=== PATIENT | male | born 1990 | race Caucasian/White ===

== ENCOUNTER → 2022-08-29 | Outpatient (REF) | payer BC, OTHER | LOC: M SMT 17:08 | PROVIDERS: ATTEND Urology | DX: Z30.2 Encounter for sterilization (principal) ==

== ENCOUNTER 2022-10-03 02:28 | Emergency (ER) | payer BC, OTHER ==
[~2022-10-03] VITALS: Ht 188 cm; Wt 112.6 kg
[2022-10-03] MEDS ORDERED: AMPICILLIN SOD/SULBACTAM SOD 3 GM in D5W MINI-BAG PLUS 100 ML IV ONE (03:15)
[2022-10-03 03:17] LABS: BASO # 0.1 10^3/uL (0.0-0.2); BASO % 0.6 % (0.0-1.0); EOS # 0.2 10^3/uL (0.0-0.5); EOS % 2.6 % (0.0-3.0); HEMATOCRIT 42.5 % (42.0-52.0); HEMOGLOBIN 14.2 g/dl (13.5-17.5); LYMPH # 0.7 10^3/uL (1.5-5.0); LYMPH % 8.6 % (24.0-44.0); MEAN CORPUSCULAR HEMOGLOBIN 29.3 pg (27.0-33.0); MEAN CORPUSCULAR HGB CONC 33.4 g/dl (32.0-36.5); MEAN CORPUSCULAR VOLUME 87.6 fl (80.0-96.0); MONO # 0.7 10^3/uL (0.0-0.8); MONO % 8.5 % (2.0-8.0); NEUTROPHILS # 6.3 10^3/uL (1.5-8.5); NEUTROPHILS % 79.2 % (36.0-66.0); PLATELET COUNT, AUTOMATED 163 10^3/uL (150-450); RED BLOOD COUNT 4.85 10^6/uL (4.30-6.10)
[2022-10-03] MEDS ORDERED: ACETAMINOPHEN TAB 650MG DOSE (2X325MG) PO ONE ×2 (03:25→09:15)
[2022-10-03 03:28] LABS: INR 1.01; PROTHROMBIN TIME 13.5 SECONDS (12.5-14.5)
[2022-10-03 03:29] LABS: LIPASE 31 U/L (12-53)
[2022-10-03 03:31] LABS: AMYLASE 42 U/L (30-118); CK-MB VALUE MASS < 1.0 NG/ML (<3.6)
[2022-10-03 03:32] LABS: ALBUMIN 3.9 G/DL (3.2-5.2); ALKALINE PHOSPHATASE 65 U/L (46-116); ALT/SGPT 23 U/L (7.0-40); AST/SGOT 19 U/L (<34); BILIRUBIN,DIRECT 0.2 MG/DL (<0.4); BILIRUBIN,TOTAL 0.5 MG/DL (0.3-1.2); BLOOD UREA NITROGEN 14 MG/DL (9-23); CARBON DIOXIDE LEVEL 24 MMOL/L (20-31); CHLORIDE LEVEL 105 MMOL/L (98-107); CPK CREATINE PHOSPHOKINASE 386 U/L (46-171); CREATININE FOR GFR 0.93 MG/DL (0.70-1.30); GLOMERULAR FILTRATION RATE > 60.0 (>60); GLUCOSE, FASTING 118 MG/DL (60-100); MB/CK RELATIVE INDEX 0.25 (< OR =4); POTASSIUM SERUM 4.1 MMOL/L (3.5-5.1); SODIUM LEVEL 138 MMOL/L (136-145); TOTAL PROTEIN 6.4 G/DL (5.7-8.2)
[2022-10-03 03:47] LABS: RSV AMPLIFICATION NEGATIVE (NEGATIVE)
[2022-10-03 04:06] LABS: CK-MB VALUE MASS < 1.0 NG/ML (<3.6)
[2022-10-03 04:08] LABS: CPK CREATINE PHOSPHOKINASE 369 U/L (46-171); MB/CK RELATIVE INDEX 0.27 (< OR =4)
[2022-10-03] MEDS ORDERED: ISOVUE-370 76% 100ML VIAL As Ordered ONE (04:22)
[2022-10-03] MEDS ORDERED: NS 1,000 ML IV ONE (07:00)
[2022-10-03 09:22] VITALS: BP 119/74
[2022-10-03] MEDS ORDERED: MORPHINE 2 MG/ML 1ML VIAL IV ONE (09:35)
[2022-10-03] MEDS ORDERED: AMOX875T2 PO (09:37)
== END 2022-10-03 10:13 | disposition home or self-care (01) ==
LOC: M ED 02:28
DX: L03.211 Cellulitis of face (principal); Z98.890 Other specified postprocedural states; F17.200 Nicotine dependence, unspecified, uncomplicated
CPT/HCPCS: 70487; 71046; 80048; 80076; 82150; 82550; 82553; 83605; 83690; 84484; 85025; 85610; 87040; 87631; 93005; 93041; 96365; 96375; 99284; J0295; Q9967